=== PATIENT | male | born 1960 | race African-American/Black ===

== ENCOUNTER 2017-10-03 10:13 | Emergency (ER) | payer OTHER ==
[~2017-10-03] VITALS: Ht 182.9 cm; Wt 104.3 kg
[2017-10-03] MEDS ORDERED: COUMADIN 1MG TAB1 M1 PO (10:26)
[2017-10-03] MEDS ORDERED: PRINIVIL10 MG PO (10:26)
[2017-10-03] MEDS ORDERED: HYDROCODONE-AP1 EAC6 PO (11:38)
[2017-10-03 11:49] VITALS: BP 134/78
== END 2017-10-03 11:49 | disposition home or self-care (01) ==
LOC: M.ERS 10:13
DX: M54.9 Dorsalgia, unspecified (principal); I10 Essential (primary) hypertension